=== PATIENT | male | born 1965 | race Caucasian/White ===

== ENCOUNTER → 2017-03-05 | Day surgery (SDC) | payer OTHER ==
[~2017-03-05] VITALS: Ht 180.3 cm; Wt 81.7 kg
[~2017-03-05] MED LIST: LORA10CA PO; NOMED; Sodium Chloride LOK Flush 10 mL Syringe IV PRN; fentaNYL-PF 50 mCg/mL 2 mL Inj IVPUSH PRN
[2017-03-05 15:25] VITALS: BP 131/72; PULSE 56; RESP 16; O2SAT 98
[2017-03-05] MEDS: 0.9% Sodium Chloride 1,000 ML IV PRN ×2 (15:32→16:32)
--- NOTE | 2017-03-05 16:51 | PCM.ENDCOL ---
Colonoscopy Date of Service: Mar 05, 2017 Physician Lenin Christy MD Pre Procedure Diagnosis: Screening for colon cancer family history of colon cancer Post Procedure Dx & Findings: Polyp hemorrhoids diverticuli Procedure Colonoscopy PROCEDURE IN DETAIL: Prep adequate Withdrawal time 14 minutes After unremarkable rectal examination the Olympus video colonoscope was inserted patient's anal canal and was advanced to cecum. Landmarks were identified including the ileocecal valve and appendiceal orifice. Scope was withdrawn systematically. Visualized colonic mucosa showed healthy shiny mucosa with normal healthy-appearing vasculature. In the descending colon, there was a 3 mm polyp which was removed completely using cold snare. In the sigmoid colon, there were several small diverticuli. In the rectum retroflexion was done which showed hemorrhoids. Anal canal was inspected carefully on the way out and hemorrhoids noted. Impression Polyp 1 status post complete removal Diverticuli Hemorrhoids Recommendation Repeat colonoscopy 5 years Diverticular diet Presedation Assessment Risks and Benefits Informed consent was obtained from the patient after all risks and benefits including but not limited to drug reaction, infection, pain, bleeding, perforation, as well as alternatives were discussed. Patient monitoring Continuous pulse oximetry, cardiac monitoring, blood pressure monitoring, IV access, and oxygen at 2L per nasal cannula. Periprocedural Fentanyl: Fentanyl 125mcg Incrementally Midazolam: Midazolam 5mg Incrementally Complications There were no periprocedural complications identified. Post Procedure Plan Post Procedure Recommendations 1. Restrict activities today. 2. Resume normal activities in the morning. 3. Resume medications. 4. Patient informed of normal post procedure side effects as bloating, drowsiness, blood streaking in the stool. 5. average risk CRCS. If colon polyps come back as: -Hyperplastic- can repeat colonoscopy in 10 years -Tubular adenoma- repeat colonoscopy in 5 years -Tubulovillous/villous adenoma- repeat colonoscopy in 3 years -If any dysplasia- return to clinic as soon as possible 6. Please don't hesitate to call me with any questions. Lenin Christy MD Mar 05, 2017 16:50
[2017-03-05 16:52] VITALS: BP 112/53; PULSE 56; RESP 16; O2SAT 99
[2017-03-05 17:02] VITALS: BP 105/59; PULSE 52; RESP 16; O2SAT 99
--- NOTE | 2017-03-08 16:16 | PATH ---
SURGICAL PATHOLOGY Attending Physician:Lenin Christy M.D. CASE STATUS: Signed Out PATIENT NAME: HAILE SAVAGE PID: [id number] : 1965 DATE COLLECTED:03/05/2017 00:00 SPECIMEN: Colon, Polyp CLINICAL HISTORY: 1). DESCENDING COLON POLYP FINAL DIAGNOSIS: Descending Colon, Polyp, Biopsy: Tubular adenoma. ICD10: D12.4 GROSS DESCRIPTION: The specimen is received in one formalin filled container labeled with the patient's name, sublabeled "descending colon polyp" and consists of a 0.5 x 0.3 x 0.2 CM portion of tissue which is entirely submitted in one cassette. 03/06/2017DC ICD-9 CODES: CPT CODES: 1: 56024 Electronically Signed Out Sana You MD [facility] Pathology [facility] [address], [place] [address] Technical component performed at [facility], [place], [facility] [address], [address]
== END | disposition home or self-care (01) ==
LOC: END 01:25
PROVIDERS: ATTEND Internal Medicine
DX: Z12.11 Encounter for screening for malignant neoplasm of colon (principal); Z80.0 Family history of malignant neoplasm of digestive organs; D12.4 Benign neoplasm of descending colon; K57.30 Diverticulosis of large intestine without perforation or abscess without bleeding; K64.9 Unspecified hemorrhoids; F19.21 Other psychoactive substance dependence, in remission; Z85.828 Personal history of other malignant neoplasm of skin; Z87.891 Personal history of nicotine dependence
CPT/HCPCS: 45385; 99153; G0500; J2250; J3010; J7030